=== PATIENT | male | born 1935 | race Caucasian/White ===

== ENCOUNTER 2018-07-24 21:17 | Emergency (ER) | payer OTHER ==
[~2018-07-24] VITALS: Ht 185.4 cm; Wt 81.0 kg
[2018-07-24] MEDS ORDERED: LIDOCAINE HCL/PF 1% 10 MG/ML 5ML VIAL IJ ONE (22:30)
[2018-07-24] MEDS ORDERED: BACITRACIN ZINC OINT UDPKT TOP ONE (22:30)
[2018-07-24 23:54] VITALS: BP 144/69
== END 2018-07-24 23:59 | disposition home or self-care (01) ==
LOC: ER 23:55
DX: S01.311A Laceration without foreign body of right ear, initial encounter (principal); W01.190A Fall on same level from slipping, tripping and stumbling with subsequent striking against furniture, initial encounter; Y93.89 Activity, other specified; Y92.013 Bedroom of single-family (private) house as the place of occurrence of the external cause
CPT/HCPCS: 12014; 99283; Z7610

== ENCOUNTER 2018-07-26 11:12 | Emergency (ER) | payer OTHER ==
[~2018-07-26] VITALS: Ht 188 cm; Wt 63.4 kg
[2018-07-26 11:29] VITALS: BP 136/70
== END 2018-07-26 13:46 | disposition home or self-care (01) ==
LOC: ER 11:12
DX: S01.311D Laceration without foreign body of right ear, subsequent encounter (principal); X58.XXXD Exposure to other specified factors, subsequent encounter
CPT/HCPCS: 99281